=== PATIENT | female | born 1985 | race Caucasian/White ===

== ENCOUNTER 2018-01-06 14:36 | Inpatient (IN) | payer OTHER ==
[2018-01-06] MEDS ORDERED: Misoprostol TAB* 100 MCG PO ONE (17:47)
[2018-01-06] MEDS ORDERED: Misoprostol TAB* 100 MCG ONE (18:04)
--- NOTE | 2018-01-06 18:48 | HP ---
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 Pertinent Family History: See Records - hypothyroidism, HTN, ovarian cysts - Antepartal Records Antepartal Records: Reviewed, Uncomplicated - GBS bacteriuria, IVF Review of Systems Constitutional: Comfortable CV Complaint: No Respiratory: Shortness of Breath: No Gastrointestinal: No Nausea/Vomiting, Normal Bowel Movement Genitourinary: Leaking Fluid, No Dysuria, No Bleeding Musculoskeletal: No Complaint Neurological: No Headache, No Visual Changes Movement: Normal Exam Allergies/Adverse Reactions: Allergies cephalexin [From Keflex] Allergy (Verified 01/06/18 18:46) See Comment lip numbness/swelling, delayed onset, no respiratory sx T-98.3, P-70, R-16, BP-119/72, O2-99% Lab Values - Entire Visit: Laboratory Tests 01/06/18 15:02 Vag Amniotic Fld Detect Positive - Measurements Height: 5 ft 4 in Weight: 83.461 kg Weight in lbs: 184.370147 Body Mass Index (BMI): 31.6 Pre- Weight: 67.132 kg Weight Gained This : 36 lbs and 0 ozs - Exam Abdomen: No Upper Quadrant Pain Breast: Breast Exam Deferred CVA: No CVA Tenderness Extremities: Edema - bilat nonpitting pedal edema Heart: Normal Rhythm/Heart Sounds HEENT: No Significant Findings Lungs: Clear Bilaterally Rectal: Rectal Exam Deferred Reflexes: DTR 2+ Thyroid: No Thyromegaly - Abdominal Exam Abdomen Exam: Non-Tender, Fundal Height Consistent with Dates - Ultrasound/Biophysical Profile Ultrasound Status: Not Done Targeted Exam Findings See L&D Outpatient Visit Provider Note for Findings: N/A Estimated Weight: 7.5# Membrane Status: SROM Amniotic Fluid Evaluation: Positive ROM Plus Bleeding/Discharge: None EFM Findings - External Monitor Findings Baseline Heart Rate: 125 External Monitor Findings: Accelerations Present, No Pattern of Variable or Late Decelerations, Variability Moderate, Baseline Stable Contractions: Irregular, Mild, 45-90 Seconds Assessment/Plan - Reason for Visit Reason for Visit: Questionable SROM - Obstetrical Risk Factors Obstetrical Risk Factors: GBS Positive - Plan Plan: Cervical Ripening - Date/Time of Admission Date of Admission: 01/06/18 Time of Admission: 17:00
[2018-01-06 19:03] LABS: Hematocrit 32 % (35-47); Hemoglobin 10.9 g/dl (12.0-16.0); Mean Corpuscular HGB Conc 34 g/dl (31-36); Mean Corpuscular Hemoglobin 33 pg (27-31); Mean Corpuscular Volume 95 fL (80-97); Mean Platelet Volume 11.2 um3 (7.4-10.4); Platelet Count 150 10^3/ul (150-450); Red Blood Count 3.35 10^6/ul (4.00-5.40); Red Cell Distribution Width 14 % (10.5-15); White Blood Count 10.8 10^3/ul (3.5-10.8)
--- NOTE | 2018-01-06 19:20 | PN ---
Progress Note - Progress Note Date of Service: 01/06/18 Note: S: Pt admitted with term prelabor rupture of membranes. hx significant for GBS bacteriuria, PMH significant for asthma, hypothyroidism. Pt reported leaking of clear fluid starting 1300 today. Denied ctx. Brainard positive FM. Cervical exam performed in office yesterday by this field underwriter, pt was closed/ soft / 80%/ -2. O: FHR Cat 1, no evidence of acidemia ROM confirmed by ROM-plus Mild irregular ctx on arrival A: 32 y.o. w/ term prelabor rupture of membranes, not in labor, no evidence of acidemia P: Discussed with pt need for antibiotic prophylaxis secondary to GBS bacteriuria. Pt reports that while being treated with Keflex for UTI in , after about 5 days developed some mild lip tingling and swelling. Never experienced any respiratory involvement. Discussed w/ pt that there is approx 5% cross-reactivity between cephalosporins and PCN. Given questionable hx allergic reaction and lack of anaphylacitc reaction it is reasonable to use PCN for prophylaxis, but pt to notify us if any signs of allergic reaction. Pt in agreement with plan. Discussed options for proceeding with labor at this point, including expectant management, trial of Pitocin augmentation, and oral Cytotec. Since pt was examined by me in the office yesterday and was not dilated and has not been having ctx, will defer cervical exam at this time. Pt prefers to initiate labor augmentation at this time, will try PO Cytotec. Risks and benefits discussed with pt and , and they are in agreement with the plan.
[2018-01-06] MEDS ORDERED: Buffered Lidocaine 0.9% SYRIN* 5 ML/SYR SYRINGE ONE (19:28)
[2018-01-06] MEDS ORDERED: Penicillin G Potassium IV* 5,000,000 UNITS in NS 0.9% 100 ML* 100 ML IVPB ONE (19:30)
[2018-01-06 19:32] LABS: ABS Basophils 0 10^3/ul (0-0.2); ABS Eosinophils 0 10^3/ul (0-0.6); ABS Lymphocytes 1.5 10^3/ul (1.0-4.8); ABS Monocytes 0.6 10^3/ul (0-0.8); ABS Neutrophils 8.6 10^3/ul (1.5-7.7)
[2018-01-06 19:56] LABS: Eosinophil % 0.2 % (0-6); Lymphocyte % 13.7 % (25-47); Nucleated Red Blood Cells % 0.1
[2018-01-06 19:58] LABS: ABS Nucleated RBC 0 10^3/ul
[2018-01-06] MEDS ORDERED: Promethazine INJ(RESTRICTED)* 25 MG/ML 1 ML VIAL IV ONE (22:08)
[2018-01-06] MEDS ORDERED: Nalbuphine* 10 MG/ML 1 ML VIAL IV ONE (22:10)
[2018-01-07] MEDS ORDERED: Penicillin G Potassium IV* 2,500,000 UNITS in NS 0.9% 100 ML* 100 ML IVPB SCH ×2
[2018-01-07] MEDS ORDERED: OBEPIDURAL* 250 ML EPIDURAL ONE (00:11)
[2018-01-07] MEDS ORDERED: fentaNYL* 50 MCG/ML 2 ML VIAL (100 MCG VIAL) ONE (00:12)
[2018-01-07] MEDS ORDERED: Famotidine TAB* 20 MG PO PRN (00:58)
[2018-01-07] MEDS ORDERED: Phenylephrine IV* 40 MCG/ML 10 ML SYRINGE IV PUSH PRN ×2 (00:58)
[2018-01-07] MEDS ORDERED: Sodium Citrate/Citric Acid* 15 ML UDC PO PRN (00:58)
[2018-01-07] MEDS ORDERED: OBEPIDURAL* 250 ML EPIDURAL SCH (01:00)
[2018-01-07] MEDS ORDERED: Ondansetron 40 MG VIAL* 2 MG/ML 20 ML VIAL IV PRN (01:02)
[2018-01-07] MEDS ORDERED: Acetaminophen TAB* 325 MG PO ONE (03:55)
[2018-01-07] MEDS ORDERED: Acetaminophen TAB* 325 MG ONE (03:56)
[2018-01-07] MEDS ORDERED: GENTAMICIN ADULT IVPB ONE (04:00)
[2018-01-07] MEDS ORDERED: NS 0.9% IVPB ONE (04:00)
[2018-01-07] MEDS ORDERED: NS 0.9% 100 ML* 100 ML ONE (04:29)
[2018-01-07] MEDS: Ampicillin IV* 2 GM in NS 0.9% 100 ML* 100 ML IVPB SCH ×2 (04:38→10:23)
--- NOTE | 2018-01-07 04:40 | PN ---
Progress Note - Progress Note Date of Service: 01/07/18 SOAP: Subjective: [Pt feeling fatigued, otherwise "okay," feels some pressure with some ctx. Generally comfortable with epidural. at bedside, supportive. ] Objective: [FHR baseline 170/mod variability/no accels/ early decels with some ctx Ctx: Q 2-3 minutes, strong, 60-80 sec Cervical exam: fully dilated/ 0 station Maternal temp: 101.4 ] Assessment: [32 year old in active labor, full dilation, with probable intra-amniotic infection] Plan: [Initiate broad spectrum abx coverage with ampicillin and gentamicin Acetaminophen [address] Yancey Neonatology present for Labor down at least until abx infusing or strong urge to push]
[2018-01-07] MEDS ORDERED: Oxytocin in LR* 20 UNITS/1,000 ML BAG IVPB ONE (09:35)
[2018-01-07] MEDS ORDERED: Glycerin ADULT SUPP PR PRN (11:27)
[2018-01-07] MEDS ORDERED: Witch Hazel PAD* JAR TOPICAL PRN (11:27)
[2018-01-07] MEDS ORDERED: Oxytocin in LR* 20 UNITS/1,000 ML BAG IVPB SCH (12:00)
[2018-01-07] MEDS: Dibucaine 1% 28.35 GM TUBE PR PRN (12:41)
[2018-01-07] MEDS: Ibuprofen TAB* 600 MG PO PRN ×2 (12:41→18:36)
[2018-01-07] MEDS: Docusate CAP* 100 MG PO SCH ×2 (14:17→19:44)
[2018-01-07] MEDS ORDERED: oxyCODONE/Acetamin 5/325 MG* TAB PO PRN (15:42)
[2018-01-07] MEDS: Acetaminophen TAB* 325 MG PO PRN ×2 (16:46→20:36)
[2018-01-08] MEDS: Ibuprofen TAB* 600 MG PO PRN ×4 (00:43→19:45)
[2018-01-08] MEDS: Acetaminophen TAB* 325 MG PO PRN ×6 (00:44→23:28)
[2018-01-08 06:25] LABS: ABS Basophils 0 10^3/ul (0-0.2); ABS Eosinophils 0.1 10^3/ul (0-0.6); ABS Lymphocytes 1.5 10^3/ul (1.0-4.8); ABS Monocytes 0.7 10^3/ul (0-0.8); ABS Neutrophils 11.6 10^3/ul (1.5-7.7); ABS Nucleated RBC 0 10^3/ul; Eosinophil % 0.5 % (0-6); Hematocrit 27 % (35-47); Hemoglobin 9.4 g/dl (12.0-16.0); Lymphocyte % 10.6 % (25-47); Mean Corpuscular HGB Conc 34 g/dl (31-36); Mean Corpuscular Hemoglobin 32 pg (27-31); Mean Corpuscular Volume 95 fL (80-97); Mean Platelet Volume 11.1 um3 (7.4-10.4); Nucleated Red Blood Cells % 0; Platelet Count 111 10^3/ul (150-450); Red Blood Count 2.89 10^6/ul (4.00-5.40); Red Cell Distribution Width 14 % (10.5-15); White Blood Count 13.9 10^3/ul (3.5-10.8)
[2018-01-08] MEDS: Ferrous Gluconate TAB* 324 MG TAB PO SCH ×2 (09:12→19:45)
[2018-01-08] MEDS: Docusate CAP* 100 MG PO SCH ×3 (09:12→19:45)
[2018-01-08] MEDS: Dibucaine 1% 28.35 GM TUBE PR PRN (19:46)
[2018-01-09] MEDS: Ibuprofen TAB* 600 MG PO PRN ×3 (02:48→14:25)
[2018-01-09] MEDS: Ferrous Gluconate TAB* 324 MG TAB PO SCH (07:59)
[2018-01-09] MEDS: Docusate CAP* 100 MG PO SCH ×2 (08:00→14:25)
[2018-01-09 08:05] VITALS: BP 114/61
[2018-01-09] MEDS: Acetaminophen TAB* 325 MG PO PRN (08:47)
== END 2018-01-09 18:26 | disposition home or self-care (01) | DRG 775 ==
LOC: MCHOBOUT 14:36 → MCHOB 15:51
PROVIDERS: ADMIT Midwife; ATTEND Midwife
PROC: 10D07Z4 Extraction of Products of Conception, Mid Forceps, Via Natural or Artificial Opening (ICD-10-PCS; principal; 2018-01-06)
PROC: 0DQR0ZZ Repair Anal Sphincter, Open Approach (ICD-10-PCS; 2018-01-06)
DX: O42.02 Full-term premature rupture of membranes, onset of labor within 24 hours of rupture (principal); O41.1030 Infection of amniotic sac and membranes, unspecified, third trimester, not applicable or unspecified; O70.20 Third degree perineal laceration during delivery, unspecified; O99.824 Streptococcus B carrier state complicating childbirth; O99.284 Endocrine, nutritional and metabolic diseases complicating childbirth; E03.9 Hypothyroidism, unspecified; O99.52 Diseases of the respiratory system complicating childbirth; J45.909 Unspecified asthma, uncomplicated; O63.1 Prolonged second stage (of labor); O69.81X0 Labor and delivery complicated by cord around neck, without compression, not applicable or unspecified; Z3A.39 39 weeks gestation of pregnancy; Z37.0 Single live birth
CPT/HCPCS: 36415; 84112; 85025; 86850; 86900; 86901; A9270-GY; J0290; J1580; J2300; J2540; J2550; J3010; S0191

== ENCOUNTER 2018-04-30 13:54 | Emergency (ER) | payer SELFPAY ==
[2018-04-30 14:07] VITALS: BP 117/69
--- NOTE | 2018-04-30 15:18 | UC ---
- HPI Summary HPI Summary: 32-year-old woman being seen today for a needlestick. 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 Upon investigation of the sharps container there is a small bore needle which appears to be an insulin needle sticking out of the sharps container approximately 5 mm. Patient is breast- feeding her 3-month-old son. - History of Current Complaint Chief Complaint: UCGeneralIllness Stated Complaint: NEEDLE EXPOSURE Time Seen by Provider: 04/30/18 14:15 PMH/Surg Hx/FS Hx/Imm Hx Previously Healthy: Yes - Surgical History Surgical History: None - Family History Known Family History: Positive: None - Social History Lives: With Family Alcohol Use: Occasionally Substance Use Type: None Smoking Status (MU): Never Smoked Tobacco - Immunization History Most Recent Influenza Vaccination: 05/02 Most Recent Tetanus Shot: 2017 Most Recent Pneumonia Vaccination: none Review of Systems Constitutional: Negative Skin: Other - SEE HPI Eyes: Negative ENT: Negative Respiratory: Negative Cardiovascular: Negative Gastrointestinal: Negative Motor: Negative Neurovascular: Negative Musculoskeletal: Negative Neurological: Negative Psychological: Negative Is Patient Immunocompromised?: No All Other Systems Reviewed And Are Negative: Yes Physical Exam Triage Information Reviewed: Yes Appearance: Well-Appearing, No Pain Distress, Well-Nourished Vital Signs: Initial Vital Signs Temp 97.8 F 04/30/18 14:05 Pulse 60 04/30/18 14:05 Resp 18 04/30/18 14:05 BP 117/69 04/30/18 14:05 Pulse Ox 100 04/30/18 14:05 Eye Exam: Normal Eyes: Positive: Conjunctiva Clear Neck exam: Normal Neck: Positive: Supple Respiratory: Positive: No respiratory distress Musculoskeletal Exam: Normal Musculoskeletal: Positive: Strength Intact, ROM Intact Neurological Exam: Normal Neurological: Positive: Alert, Muscle Tone Normal Psychological Exam: Normal Psychological: Positive: Age Appropriate Behavior Skin: Positive: Other - On the right lower abdomen there are to pin point red areas at the site of pain. No active bleeding, the patient is unable to express blood at this site. Needlestick Course/Dx - Course Course Of Treatment: The case was discussed with infectious disease Dr. Estrada and also the [place] hotline. Exposure is considered low risk although the source is unknown. The needle smallbore and being in the bottom of the sharps container increases the probability greatly that the needle has not been used in the last 24 hours. We'll discussing with the PEP hotline and they let me know that the HIV virus after 9 hours exposed to air is 90% gone and after 24 hours there is no risk of infection. We did baseline lab work. Also discussed starting PEP and the relative risk to include risk of breast-feeding. Some of the PEP medications to transfer through the breast milk although and low enough concentrations that the considered safe in breast-feeding. At this time the patient is not planning on starting the PEP. We discussed if she changes her mind at the PCP can be started. Otherwise she will follow-up with Dr. Estrada as needed are get rechecked here in clinic. - Diagnoses Provider Diagnoses: Needlestick injury accident Discharge - Sign-Out/Discharge Documenting (check all that apply): Patient Departure All imaging exams completed and their final reports reviewed: No Studies - Discharge Plan Condition: Stable Disposition: HOME Patient Education Materials: Body Substance Exposure (ED) Referrals: Kylee WALLER,Timothy Oconnell [Primary Care Provider] - Camelia WALLER,Isaac Amado [Medical Doctor] - Additional Instructions: FOLLOW UP WITH DR MORTENSEN. GET RECHECKED FOR ANY WORSENING OF YOUR CONDITION OR QUESTIONS OR CONCERNS. - Billing Disposition and Condition Condition: STABLE Disposition: Home
[2018-04-30 18:45] LABS: ABS Basophils 0 10^3/ul (0-0.2); ABS Eosinophils 0.1 10^3/ul (0-0.6); ABS Lymphocytes 2.5 10^3/ul (1.0-4.8); ABS Monocytes 0.5 10^3/ul (0-0.8); ABS Neutrophils 3.9 10^3/ul (1.5-7.7); ABS Nucleated RBC 0 10^3/ul; Eosinophil % 0.9 % (0-6); Hematocrit 41 % (35-47); Hemoglobin 13.7 g/dl (12.0-16.0); Mean Corpuscular HGB Conc 34 g/dl (31-36); Mean Corpuscular Hemoglobin 30 pg (27-31); Mean Corpuscular Volume 89 fL (80-97); Mean Platelet Volume 9.7 um3 (7.4-10.4); Nucleated Red Blood Cells % 0.2; Platelet Count 307 10^3/ul (150-450); Red Blood Count 4.56 10^6/ul (4.00-5.40); Red Cell Distribution Width 14 % (10.5-15)
[2018-04-30 19:40] LABS: EGFR Non-African American 82.6 (>60)
--- NOTE | 2018-05-01 10:37 | UC ---
- Progress Note Progress Note: ALL LABS UNREMARKABLE. PT NOTIFIED. NO CHANGE IN MGMT - DWAIN PARHAM MD Course/Dx - Diagnoses Provider Diagnoses: Needlestick injury accident Discharge - Sign-Out/Discharge Documenting (check all that apply): Post-Discharge Follow Up All imaging exams completed and their final reports reviewed: No Studies - Discharge Plan Condition: Stable Disposition: HOME Patient Education Materials: Body Substance Exposure (ED) Referrals: Camelia WALELR,Isaac Amado [Medical Doctor] - Kylee WALLER,Timothy Oconnell [Primary Care Provider] - Additional Instructions: FOLLOW UP WITH DR MORTENSEN. GET RECHECKED FOR ANY WORSENING OF YOUR CONDITION OR QUESTIONS OR CONCERNS. - Billing Disposition and Condition Condition: STABLE Disposition: Home
== END 2018-04-30 15:20 | disposition home or self-care (01) ==
LOC: UCEAST 13:54
DX: S31.133A Puncture wound of abdominal wall without foreign body, right lower quadrant without penetration into peritoneal cavity, initial encounter (principal); W46.1XXA Contact with contaminated hypodermic needle, initial encounter; Y92.239 Unspecified place in hospital as the place of occurrence of the external cause; Y99.0 Civilian activity done for income or pay
CPT/HCPCS: 36415; 80053; 84702; 85025; 86703; 86706; 86803; 87340; 99211; G0463

== ENCOUNTER 2019-12-16 07:53 | Inpatient (IN) ==
[2019-12-16] MEDS ORDERED: Lactated Ringers 1000 ml BAG 1,000 ML IV ONE ×2 (08:11→16:33)
[2019-12-16] MEDS ORDERED: Penicillin G Potassium IV 5,000,000 UNITS in NS 0.9% 100 ml BAG 100 ML IVPB ONE (08:11)
[2019-12-16] MEDS ORDERED: Lactated Ringers 1000 ml BAG 1,000 ML IV SCH ×3 (09:00→22:00)
[2019-12-16] MEDS ORDERED: Oxytocin in LR 20 UNITS/1,000 ML BAG IVPB SCH (09:00)
[2019-12-16 09:43] LABS: Hematocrit 34 % (35-47); Mean Corpuscular HGB Conc 35 g/dL (31-36); Mean Corpuscular Hemoglobin 33 pg (27-31); Mean Corpuscular Volume 95 fL (80-97); Mean Platelet Volume 11.8 fL (7.4-10.4); Platelet Count 122 10^3/uL (150-450); Red Blood Count 3.59 10^6 /uL (3.70-4.87); Red Cell Distribution Width 15 % (10-15); White Blood Count 6.6 10^3/uL (3.5-10.8)
[2019-12-16 09:54] LABS: ABS Lymphocytes 1.4 10^3/ul (1.0-4.8); ABS Monocytes 0.4 10^3/ul (0-0.8); Eosinophil % 0.3 %; Lymphocyte % 21.6 %
[2019-12-16 09:59] LABS: Urine Benzodiazepine Screen None Detected (None Detect); Urine Opiates Screen None Detected (None Detect)
[2019-12-16] MEDS: Penicillin G Potassium IV 3,000,000 UNITS in NS 0.9% 100 ml BAG 100 ML IVPB SCH ×2 (13:03→17:09)
[2019-12-16] MEDS ORDERED: OBEPIDURAL 250 ML EPIDURAL ONE (15:21)
[2019-12-16] MEDS ORDERED: Sodium Citrate/Citric Acid LIQ 15 ML UDC PO PRN (16:33)
[2019-12-16] MEDS ORDERED: Lactated Ringers 1000 ml BAG 500 ML IV PRN ×2 (16:33)
[2019-12-16] MEDS ORDERED: EPHEDrine (Pressors) 50 MG/ML VIAL IV PUSH PRN ×2 (16:33)
[2019-12-16] MEDS ORDERED: Phenylephrine 40 mcg/mL 10mL (400mcg) SYRINGE IV PUSH PRN ×2 (16:33)
[2019-12-16] MEDS ORDERED: OBEPIDURAL 250 ML EPIDURAL SCH (17:00)
[2019-12-16] MEDS ORDERED: Methylergonovine 0.2 mg AMPULE 1 ml AMP ONE (17:31)
[2019-12-16] MEDS ORDERED: Ondansetron 4 mg VIAL 2 MG/ML 2 ml VIAL ONE (17:41)
[2019-12-16] MEDS ORDERED: Ondansetron 4 mg VIAL 2 MG/ML 2 ml VIAL IV ONE (19:40)
[2019-12-16] MEDS ORDERED: Polyethylene Glycol 3350 17 GM PACKET PO SCH (21:00)
[2019-12-16] MEDS ORDERED: Witch Hazel PAD JAR TOPICAL PRN (21:24)
[2019-12-16] MEDS ORDERED: Dibucaine 1% OINT 28.35 GM TUBE PR PRN (21:24)
[2019-12-16] MEDS ORDERED: Glycerin ADULT 2.4 gm SUPP PR PRN (21:24)
[2019-12-17 06:15] LABS: ABS Eosinophils 0.1 10^3/ul (0-0.6); ABS Lymphocytes 0.9 10^3/ul (1.0-4.8); ABS Monocytes 0.6 10^3/ul (0-0.8); Eosinophil % 0.5 %; Hematocrit 34 % (35-47); Hemoglobin 11.4 g/dL (12.0-16.0); Lymphocyte % 7.8 %; Mean Corpuscular HGB Conc 34 g/dL (31-36); Mean Corpuscular Hemoglobin 32 pg (27-31); Mean Corpuscular Volume 95 fL (80-97); Mean Platelet Volume 10.3 fL (7.4-10.4); Platelet Count 109 10^3/uL (150-450); Red Blood Count 3.55 10^6 /uL (3.70-4.87); Red Cell Distribution Width 15 % (10-15); White Blood Count 11.4 10^3/uL (3.5-10.8)
[2019-12-17] MEDS: Fluticasone NASAL SPRAY 50MCG 16 gm SPRAY BTL BOTH NARES SCH (09:40)
[2019-12-18] MEDS: Fluticasone NASAL SPRAY 50MCG 16 gm SPRAY BTL BOTH NARES SCH (08:04)
[2019-12-18 08:11] VITALS: BP 116/67
== END 2019-12-18 15:40 | disposition home or self-care (01) | DRG 807 ==
LOC: MCHOBOUT 07:53 → MCHOB 08:02
PROVIDERS: ADMIT Obstetrics & Gynecology; ATTEND Obstetrics & Gynecology